=== PATIENT | male | born 1950 | race Caucasian/White ===

== ENCOUNTER 2024-11-08 08:17 | Day surgery (SDC) | payer MEDICARE ==
[2024-11-08] VITALS (10 sets, daily range): BP systolic 113–143; BP diastolic 58–73; PULSE 55–66; RESP 16; TEMP 97.4; O2SAT 95–99
[~2024-11-08] VITALS: Ht 180.3 cm; Wt 77.4 kg
[2024-11-08 09:09] LABS: BASOPHILS % (AUTO) 0.7 % (0-1); EOSINOPHILS # (AUTO) 0.1 X10'3 (0-0.9); HEMATOCRIT 42.3 % (42.0-52.0); HEMOGLOBIN 14.4 g/dl (14.0-17.9); LYMPHOCYTES # (AUTO) 1.6 X10'3 (1.1-4.8); LYMPHOCYTES % (AUTO) 29.1 % (21-51); MEAN CORPUSCULAR HEMOGLOBIN 32.2 PG (27.0-31.0); MEAN CORPUSCULAR HGB CONC 34.1 g/dL (33.0-36.5); MEAN CORPUSCULAR VOLUME 94.3 FL (78-98); MEAN PLATELET VOLUME 8.1 FL (7.4-10.4); MONOCYTES # (AUTO) 0.5 X10'3 (0-0.9); MONOCYTES % (AUTO) 8.6 % (2-12); NEUTROPHILS # (AUTO) 3.3 X10'3 (1.8-7.7); NEUTROPHILS % (AUTO) 60.6 % (42-75); PLATELET COUNT 174 X10'3 (140-440); RED BLOOD COUNT 4.48 X10'6 (4.70-6.10); RED CELL DISTRIBUTION WIDTH 13.2 % (11.5-14.5); WHITE BLOOD COUNT 5.4 X10'3 (4.5-11.0)
[2024-11-08 09:14] LABS: ALBUMIN 3.9 G/DL (3.4-5.0); ANION GAP 8 (8-16); BLOOD UREA NITROGEN 15 MG/DL (7-18); BUN/CREATININE RATIO 18.1 (10.0-20.0); CALCIUM 8.7 MG/DL (8.5-10.1); CHLORIDE 109 MMOL/L (99-107); CREATININE 0.83 MG/DL (0.60-1.10); GLUCOSE 104 MG/DL (70-104); MAGNESIUM 2.1 MG/DL (1.5-2.4); POTASSIUM 4.2 MMOL/L (3.5-5.1); SODIUM 142 MMOL/L (135-145); TOTAL CARBON DIOXIDE 25.3 MMOL/L (24-32); eCRCL 83 ML/MIN; eGFR > 90 ML/MIN
[2024-11-08 09:16] LABS: INR 1.1 INR; PROTHROMBIN TIME 10.9 SECONDS (9.0-12.0)
[2024-11-08] MEDS ORDERED: RAMI5CAP71 PO (09:30)
[2024-11-08] MEDS ORDERED: ASPI81TA52 PO (09:30)
[2024-11-08] MEDS ORDERED: LEVO137T2 PO (09:30)
[2024-11-08] MEDS ORDERED: NITR0.4T51 SL (09:30)
[2024-11-08] MEDS ORDERED: ROSU40TA89 PO (09:30)
[2024-11-08] MEDS ORDERED: ALPH600C3 PO (09:30)
[2024-11-08] MEDS ORDERED: OMEG1CAP61 PO (09:30)
[2024-11-08] MEDS ORDERED: CARV6.253 PO (09:30)
[2024-11-08] MEDS ORDERED: EZET10TA48 PO (09:30)
[2024-11-08] MEDS: diphenhydrAMINE 25mg capsule PO PRN (09:45)
[2024-11-08] MEDS: normal saline 1,000 ML IV SCH (09:46)
[2024-11-08] MEDS ORDERED: iohexol 350 MG/ML 50ML vial IV ONE (09:50)
[2024-11-08] MEDS ORDERED: verapamil 2.5 mg/ml inj IV ONE (09:50)
[2024-11-08] MEDS ORDERED: LIDOcaine 1% (10mg/ml) 2ml vial ONE (09:50)
[2024-11-08] MEDS ORDERED: iohexol 350MG/ML 100ml bottle IV ONE ×2 (09:50→11:05)
[2024-11-08] MEDS ORDERED: heparin 1,000unit/ml 10ml vial 10 ML ONE (09:50)
[2024-11-08] MEDS ORDERED: nitroGLYCERIN 500mcg/5mL D5W 5 ML IV ONE (09:51)
[2024-11-08] MEDS: sodium bicarbonate 1meq/ml syr 150 ML in dextrose 5%-water 1,000 ML IV ONE (09:51)
[2024-11-08] MEDS ORDERED: fentaNYL/PF 50MCG/1 ML 2ML syringe ONE (09:56)
[2024-11-08] MEDS ORDERED: midazolam 1 mg/ML 2ml injection ONE ×2 (09:56→10:32)
[2024-11-08] MEDS ORDERED: ticagrelor 90mg tablet ONE (11:33)
[2024-11-08] MEDS ORDERED: HYDROcodone/acetaminophen 10/325mg tab PO PRN (12:00)
[2024-11-08] MEDS ORDERED: ondansetron/PF 4mg/2ml inj IV PRN (12:00)
[2024-11-08] MEDS ORDERED: proCHLORperazine 10 MG/2 ml inj IV PRN (12:00)
[2024-11-08] MEDS ORDERED: HYDROcodone/acetaminophen 5mg/325mg tablet PO PRN (12:00)
[2024-11-08] MEDS ORDERED: TICA90TA2 PO (12:05)
== END 2024-11-08 15:35 | disposition home or self-care (01) ==
LOC: SSTAY O 08:17
PROVIDERS: ATTEND Internal Medicine Cardiovascular Disease
DX: I25.118 Atherosclerotic heart disease of native coronary artery with other forms of angina pectoris (principal); I25.5 Ischemic cardiomyopathy; I10 Essential (primary) hypertension; E03.9 Hypothyroidism, unspecified; E78.5 Hyperlipidemia, unspecified; K22.2 Esophageal obstruction; Z79.899 Other long term (current) drug therapy; Z98.890 Other specified postprocedural states; Z87.891 Personal history of nicotine dependence
CPT/HCPCS: 36415; 80048; 83735; 85025; 85610; 93005; 93458; 99152; 99153; A6258; A6402; C1751; C1769; C1874; C1894; C9600; J1644; J2003; J2250; J3010; J3490; J7030; J7070; Q0163; Q9967; Z7610